=== PATIENT | female | born 1970 | race Two or more races ===

== ENCOUNTER 2017-03-06 20:08 | Inpatient (IN) | payer OTHER ==
[~2017-03-06] VITALS: Ht 160 cm; Wt 72.6 kg
[2017-03-06] MEDS ORDERED: Sodium Chloride 500ML 500 ML IV ONE (20:20)
[2017-03-06] MEDS ORDERED: Morphine Sulfate 4mg/ml Inj IVP ONE (20:30)
[2017-03-06 21:02] LABS: APPEARANCE,URINE CLEAR; KETONES,URINE NEGATIVE (NEGATIVE); LEUKOCYTE ESTERASE ,URINE 1+ (NEGATIVE); NITRITE,URINE NEGATIVE (NEGATIVE); PH,URINE 5 (4.5-8.0); PROTEIN,URINE NEGATIVE (NEGATIVE); UROBILINOGEN,URINE NORMAL MG/DL (0.0-1.0)
[2017-03-06 21:20] LABS: BACTERIA,URINE FEW /HPF; RBC,URINE 0-2 /HPF (0 - 2); SQUAMOUS EPITHELIAL CELL,UR OCCASIONAL /LPF (NONE/OCC)
[2017-03-06 21:38] LABS: BASOPHILS % (AUTO) 1.3 % (0.0-2.0); LYMPHOCYTES % (AUTO) 20.8 % (20.0-45.0); MEAN CORPUSCULAR HEMOGLOBIN 30.1 PG (27.0-31.0); MEAN CORPUSCULAR HGB CONC 31.4 G/DL (32.0-36.0); MEAN CORPUSCULAR VOLUME 96 FL (80-99); MEAN PLATELET VOLUME 8.2 FL (6.5-10.1); MONOCYTES % (AUTO) 6.4 % (1.0-10.0); NEUTROPHILS % (AUTO) 67.5 % (45.0-75.0); PLATELET COUNT 191 K/UL (150-450); RED BLOOD COUNT 4.18 M/UL (4.20-5.40); RED CELL DISTRIBUTION WIDTH 12.2 % (11.6-14.8); WHITE BLOOD COUNT 9.2 K/UL (4.8-10.8)
[2017-03-06 22:15] LABS: ALANINE AMINOTRANSFERASE 20 U/L (12-78); ALBUMIN/GLOBULIN RATIO 1.1 (1.0-2.7); ANION GAP 10 (5-15); ASPARTATE AMINO TRANSFERASE 33 U/L (15-37); CALCIUM 9.8 MG/DL (8.5-10.1); CARBON DIOXIDE 26 MMOL/L (21-32); CHLORIDE 102 MMOL/L (98-107); CKMB 2.8 NG/ML (0.0-3.6); CREATININE 0.8 MG/DL (0.55-1.30); GLOMERULAR FILTRATION RATE > 60 mL/min (>60); POTASSIUM 4.7 MMOL/L (3.5-5.1); SODIUM 138 MMOL/L (136-145); TOTAL PROTEIN 7.5 G/DL (6.4-8.2)
[2017-03-06 22:46] LABS: ACETAMINOPHEN < 10.0 MCG/ML (10-30)
[2017-03-06 22:47] LABS: ALCOHOL < 5 mg/dL
[2017-03-06] MEDS ORDERED: Miralax 17gm pkt ORAL PRN (23:30)
[2017-03-06] MEDS ORDERED: Zolpidem 5mg tab ORAL PRN (23:30)
[2017-03-06] MEDS ORDERED: LORazepam Inj 2mg/ml 1ml IV PRN (23:30)
[2017-03-06] MEDS ORDERED: Mylanta II UD 30ml ORAL PRN (23:30)
--- NOTE | 2017-03-06 23:40 | Emergency Room Report ---
History of Present Illness General Chief Complaint: Altered Level of Consciousness Source: Patient, EMS Present Illness HPI 47-year-old female presents ED for evaluation. Per EMS patient had a witnessed seizure at home. Witnessed by her aunt. Last for several seconds. Stated that patient foamed from the mouth and her eyes rolled to the back of her head while eating dinner. At this time patient states she feels okay but does not remember what happened. Denies history of seizures. Notes mild headache. Throbbing, 5 Out of 10, nonradiating. Denies photophobia, blurry vision. Denies neck stiffness, denies fevers or chills. Denies drug use. No aggravating relieving factors. Denies any other associated symptoms Allergies: Coded Allergies: PENICILLINS (Verified Allergy, Unknown, 03/06/17) Patient History Past Medical History: none Past Surgical History: none Pertinent Family History: none Social History: Denies: smoking, alcohol use, drug use Last Menstrual Period: unk Now: No Immunizations: UTD Reviewed Nursing Documentation: PMH: Agreed, PSxH: Agreed Nursing Documentation-PMH Past Medical History Deferred: Pt Cognitively Impaired Review of Systems All Other Systems: negative except mentioned in HPI Physical Exam Vital Signs Date Time Temp Pulse Resp B/P (MAP) Pulse Ox O2 Delivery O2 Flow Rate FiO2 03/06/17 20:02 98.2 90 18 120/71 97 Room Air Sp02 EP Interpretation: reviewed, normal General Appearance: no apparent distress, alert, GCS 15, non-toxic Head: normocephalic, atraumatic Eyes: bilateral eye normal inspection, bilateral eye PERRL ENT: hearing grossly normal, normal pharynx, no angioedema, normal voice Neck: full range of motion, supple/symm/no masses Respiratory: chest non-tender, lungs clear, normal breath sounds, speaking full sentences Cardiovascular #1: regular rate, rhythm, no edema Cardiovascular #2: 2+ carotid (R), 2+ carotid (L), 2+ radial (R), 2+ radial (L) , 2+ dorsalis pedis (R), 2+ dorsalis pedis (L) Gastrointestinal: normal bowel sounds, non tender, soft, non-distended, no guarding, no rebound Rectal: deferred Genitourinary: normal inspection, no CVA tenderness Musculoskeletal: back normal, gait/station normal, normal range of motion, non- tender Neurologic: alert, oriented x3, responsive, motor strength/tone normal, sensory intact, speech normal Psychiatric: judgement/insight normal, memory normal, mood/affect normal, no suicidal/homicidal ideation Reflexes: 3+ bicep (R), 3+ bicep (L), 3+ tricep (R), 3+ tricep (L), 3+ knee (R) , 3+ knee (L) Skin: normal color, no rash, warm/dry, well hydrated Lymphatic: no adenopathy Medical Decision Making Diagnostic Impression: Primary Impression: New onset seizure ER Course Hospital Course 47-year-old F presents to ED status post seizure. Differential diagnosis includes- breakthrough seizure, alcohol abuse, noncompliance with medication Clinical course Patient placed on stretcher. Initial history and physical I ordered labs, IV fluids, CT brain Labs-electrolytes okay, no leukocytosis noted, hemoglobin/hematocrit stable. CT Brain ok Because seizures new-onset believe patient should be admitted. Given IV loading dose of Keppra. She will be admitted to Dr. Zion colin. I feel this is a highly complex case requiring extensive working including EKG/Rhythm strip, Xray/CT/US, Blood/urine lab work, repeat exams while in ED, and administration of strong opiates/narcotics for pain control, admission to hospital or close patient follow up. Diagnosis - new onset seizure admitted to telemetry in serious condition Labs Test 03/06/17 20:30 03/06/17 21:06 Urine Color Pale yellow Urine Appearance Clear Urine pH 5 (4.5-8.0) Urine Specific [place] 1.020 (1.005-1.035) Urine Protein Negative (NEGATIVE) Urine Glucose (UA) Negative (NEGATIVE) Urine Ketones Negative (NEGATIVE) Urine Occult Blood Negative (NEGATIVE) Urine Nitrite Negative (NEGATIVE) Urine Bilirubin Negative (NEGATIVE) Urine Urobilinogen Normal MG/DL (0.0-1.0) Urine Leukocyte Esterase 1+ (NEGATIVE) Urine RBC 0-2 /HPF (0 - 2) Urine WBC 2-4 /HPF (0 - 2) Urine Squamous Epithelial Cells Occasional /LPF Urine Bacteria Few /HPF (NONE) Urine Opiates Screen Negative (NEGATIVE) Urine Barbiturates Screen Negative (NEGATIVE) Phencyclidine (PCP) Screen Negative (NEGATIVE) Urine Amphetamines Screen Negative (NEGATIVE) Urine Benzodiazepines Screen Negative (NEGATIVE) Urine Cocaine Screen Negative (NEGATIVE) Urine Marijuana (THC) Screen Negative (NEGATIVE) White Blood Count 9.2 K/UL (4.8-10.8) Red Blood Count 4.18 M/UL (4.20-5.40) Hemoglobin 12.6 G/DL (12.0-16.0) Hematocrit 40.0 % (37.0-47.0) Mean Corpuscular Volume 96 FL (80-99) Mean Corpuscular Hemoglobin 30.1 PG (27.0-31.0) Mean Corpuscular Hemoglobin Concent 31.4 G/DL (32.0-36.0) Red Cell Distribution Width 12.2 % (11.6-14.8) Platelet Count 191 K/UL (150-450) Mean Platelet Volume 8.2 FL (6.5-10.1) Neutrophils (%) (Auto) 67.5 % (45.0-75.0) Lymphocytes (%) (Auto) 20.8 % (20.0-45.0) Monocytes (%) (Auto) 6.4 % (1.0-10.0) Eosinophils (%) (Auto) 4.0 % (0.0-3.0) Basophils (%) (Auto) 1.3 % (0.0-2.0) Sodium Level 138 MMOL/L (136-145) Potassium Level 4.7 MMOL/L (3.5-5.1) Chloride Level 102 MMOL/L (98-107) Carbon Dioxide Level 26 MMOL/L (21-32) Anion Gap 10 (5-15) Blood Urea Nitrogen 15 mg/dL (7-18) Creatinine 0.8 MG/DL (0.55-1.30) Estimat Glomerular Filtration Rate > 60 mL/min (>60) Glucose Level 78 MG/DL (74-106) Calcium Level 9.8 MG/DL (8.5-10.1) Total Bilirubin 0.4 MG/DL (0.2-1.0) Aspartate Amino Transf (AST/SGOT) 33 U/L (15-37) Alanine Aminotransferase (ALT/SGPT) 20 U/L (12-78) Alkaline Phosphatase 92 U/L (46-116) Total Creatine Kinase 218 U/L (26-308) Creatine Kinase MB 2.8 NG/ML (0.0-3.6) Creatine Kinase MB Relative Index 1.2 Troponin I 0.000 ng/mL (0.000-0.056) Total Protein 7.5 G/DL (6.4-8.2) Albumin 4.0 G/DL (3.4-5.0) Globulin 3.5 g/dL Albumin/Globulin Ratio 1.1 (1.0-2.7) Salicylates Level 6 ug/mL (2.8-20) Acetaminophen Level < 10.0 MCG/ML (10-30) Serum Alcohol < 5 mg/dL CT/MRI/US Diagnostic Results CT/MRI/US Diagnostic Results : Imaging Test Ordered: CT Head Impression no acute process Last Vital Signs Date Time Temp Pulse Resp B/P (MAP) Pulse Ox O2 Delivery O2 Flow Rate FiO2 03/06/17 20:02 98.2 90 18 120/71 97 Room Air Status: improved Disposition: ADMITTED INPATIENT Condition: Serious Referrals: NON PHYSICIAN (PCP) ALEXANDER CAMARILLO M.D. Mar 06, 2017 23:40
[2017-03-06] MEDS ORDERED: levETIRAcetam 500 MG in D5W 110 ML IV ONE (23:45)
[2017-03-07] VITALS (7 sets, daily range): BP systolic 101–132; BP diastolic 58–79
[2017-03-07] MEDS ORDERED: Ketorolac 30mg Inj IV ONE
[2017-03-07] MEDS ORDERED: Ketorolac 30mg Inj ONE (00:34)
[2017-03-07] MEDS ORDERED: levETIRAcetam 500mg vial IV ONE (00:35)
[2017-03-07] MEDS ORDERED: TRAZODONE HCL50 MG ORAL (00:58)
[2017-03-07] MEDS ORDERED: AMBIEN5 MG ORAL (00:58)
[2017-03-07] MEDS ORDERED: PROPRANOLOL HCL10 MG ORAL (00:58)
[2017-03-07] MEDS ORDERED: TRAZODONE HCL150 MG ORAL (01:54)
[2017-03-07] MEDS: Morphine Sulfate 2mg/ml Inj IVP PRN ×5 (03:29→22:52)
[2017-03-07 08:05] LABS: BASOPHILS % (AUTO) 1.3 % (0.0-2.0); EOSINOPHILS % (AUTO) 4.2 % (0.0-3.0); LYMPHOCYTES % (AUTO) 39.5 % (20.0-45.0); MEAN CORPUSCULAR HEMOGLOBIN 32.4 PG (27.0-31.0); MEAN CORPUSCULAR HGB CONC 34.1 G/DL (32.0-36.0); MEAN CORPUSCULAR VOLUME 95 FL (80-99); MEAN PLATELET VOLUME 9.1 FL (6.5-10.1); MONOCYTES % (AUTO) 8.5 % (1.0-10.0); NEUTROPHILS % (AUTO) 46.5 % (45.0-75.0); PLATELET COUNT 176 K/UL (150-450); RED CELL DISTRIBUTION WIDTH 12.4 % (11.6-14.8); WHITE BLOOD COUNT 6.3 K/UL (4.8-10.8)
[2017-03-07] MEDS: Heparin 5000 units/ml inj SUBQ SCH ×2 (08:15→20:42)
[2017-03-07 08:45] LABS: ALANINE AMINOTRANSFERASE 19 U/L (12-78); ALBUMIN/GLOBULIN RATIO 1.2 (1.0-2.7); ANION GAP 9 (5-15); ASPARTATE AMINO TRANSFERASE 19 U/L (15-37); CALCIUM 8.6 MG/DL (8.5-10.1); CARBON DIOXIDE 26 MMOL/L (21-32); CHLORIDE 106 MMOL/L (98-107); CREATININE 0.8 MG/DL (0.55-1.30); GLOMERULAR FILTRATION RATE > 60 mL/min (>60); POTASSIUM 3.6 MMOL/L (3.5-5.1); SODIUM 141 MMOL/L (136-145); TOTAL PROTEIN 6.3 G/DL (6.4-8.2)
--- NOTE | 2017-03-07 09:46 | Diagnostic Imaging Report ---
Indication: Headache, fall, status post seizure Technique: Continuous helical CT scanning of the head was performed without intravenous contrast material. Axial and coronal 5 mm sections were generated. Radiation dose was minimized using automated exposure control Dose: Total Dose Length Product - DLP [address] Dose Index - CTDIvol(s) 70.38 mGy. Comparison: None Findings: The ventricular system is normal in size and configuration. There is no shift of midline structures. No abnormal extra-axial fluid collections are noted. There is no evidence of intracerebral bleeding. No other abnormal high or low density areas are noted within the brain. Intact calvarium. Visualized orbits and sinuses are unremarkable. There is a small right supraorbital scalp soft tissue contusion. Impression: Evidence of extracranial right frontal scalp soft tissue injury Negative for acute intracranial bleed or mass effect. This agrees with the preliminary interpretation provided overnight by [facility] teleradiology service. The CT scanner at [facility] is accredited by the [employer] and the scans are performed using protocols designed to limit radiation exposure to as low as reasonably achievable to attain images of sufficient resolution adequate for diagnostic evaluation.
--- NOTE | 2017-03-07 12:23 | History and Physical ---
History of Present Illness General Date patient seen: Mar 07, 2017 Reason for Hospitalization: Altered Level of Consciousness Present Illness HPI 47-year-old female presents ED for evaluation of a witnessed seizure at home. Lasted for several seconds. She foamed from the mouth and her eyes rolled to the back of her head while eating dinner. At this time patient states she feels okay but does not remember what happened. Denies history of seizures. Notes mild headache. Denies photophobia, blurry vision. She is admitted to telemetry for evaluation of new onset seizures. Allergies: Coded Allergies: PENICILLINS (Verified Allergy, Unknown, 03/06/17) Medication History Scheduled Propranolol Hcl* (Inderal*), 10 MG ORAL THREE TIMES A DAY, (Reported) Trazodone* (Trazodone*), 150 MG ORAL BEDTIME, (Reported) Scheduled PRN Zolpidem Tartrate* (Ambien*), 12.5 MG ORAL BEDTIME PRN for Insomnia, (Reported) Patient History Healthcare decision maker Resuscitation status Full Code Advanced Directive on File Past Medical/Surgical History Past Medical/Surgical History: (1) No pertinent past medical history Review of Systems Endocrine: Reports: no symptoms Hematologic/Lymphatic: Reports: no symptoms Physical Exam General Appearance: WD/WN, no apparent distress Lines, tubes and drains: peripheral HEENT: normocephalic, atraumatic Neck: non-tender, normal alignment Respiratory/Chest: chest wall non-tender Breasts: no masses Cardiovascular/Chest: normal peripheral pulses Abdomen: normal bowel sounds Genitourinary/Rectal: normal genital exam Last 24 Hour Vital Signs Date Time Temp Pulse Resp B/P (MAP) Pulse Ox O2 Delivery O2 Flow Rate FiO2 03/07/17 08:50 97.5 64 18 112/72 96 Room Air 03/07/17 08:00 64 03/07/17 04:09 97.7 54 20 101/62 94 Room Air 03/07/17 04:00 53 03/07/17 01:25 97.2 57 20 117/78 94 Room Air 03/07/17 01:03 98.2 03/07/17 01:02 98.2 03/07/17 01:02 98.2 03/07/17 00:59 98.2 81 18 132/78 97 Room Air 03/07/17 00:51 98.2 81 18 132/78 97 Room Air 03/06/17 20:02 98.2 90 18 120/71 97 Room Air Intake and Output 03/07/17 03/08/17 19:00 07:00 Intake Total 120 ml Balance 120 ml Intake Oral 120 ml # Voids 1 Laboratory Tests Test 03/06/17 20:30 03/06/17 21:06 03/07/17 07:00 Urine Color Pale yellow Urine Appearance Clear Urine pH 5 (4.5-8.0) Urine Specific [place] 1.020 (1.005-1.035) Urine Protein Negative (NEGATIVE) Urine Glucose (UA) Negative (NEGATIVE) Urine Ketones Negative (NEGATIVE) Urine Occult Blood Negative (NEGATIVE) Urine Nitrite Negative (NEGATIVE) Urine Bilirubin Negative (NEGATIVE) Urine Urobilinogen Normal MG/DL (0.0-1.0) Urine Leukocyte Esterase 1+ (NEGATIVE) H Urine RBC 0-2 /HPF (0 - 2) Urine WBC 2-4 /HPF (0 - 2) Urine Squamous Epithelial Cells Occasional /LPF Urine Bacteria Few /HPF (NONE) Urine Opiates Screen Negative (NEGATIVE) Urine Barbiturates Screen Negative (NEGATIVE) Phencyclidine (PCP) Screen Negative (NEGATIVE) Urine Amphetamines Screen Negative (NEGATIVE) Urine Benzodiazepines Screen Negative (NEGATIVE) Urine Cocaine Screen Negative (NEGATIVE) Urine Marijuana (THC) Screen Negative (NEGATIVE) White Blood Count 9.2 K/UL (4.8-10.8) 6.3 K/UL (4.8-10.8) Red Blood Count 4.18 M/UL (4.20-5.40) L 3.60 M/UL (4.20-5.40) L Hemoglobin 12.6 G/DL (12.0-16.0) 11.7 G/DL (12.0-16.0) L Hematocrit 40.0 % (37.0-47.0) 34.2 % (37.0-47.0) L Mean Corpuscular Volume 96 FL (80-99) 95 FL (80-99) Mean Corpuscular Hemoglobin 30.1 PG (27.0-31.0) 32.4 PG (27.0-31.0) H Mean Corpuscular Hemoglobin Concent 31.4 G/DL (32.0-36.0) L 34.1 G/DL (32.0-36.0) Red Cell Distribution Width 12.2 % (11.6-14.8) 12.4 % (11.6-14.8) Platelet Count 191 K/UL (150-450) 176 K/UL (150-450) Mean Platelet Volume 8.2 FL (6.5-10.1) 9.1 FL (6.5-10.1) Neutrophils (%) (Auto) 67.5 % (45.0-75.0) 46.5 % (45.0-75.0) Lymphocytes (%) (Auto) 20.8 % (20.0-45.0) 39.5 % (20.0-45.0) Monocytes (%) (Auto) 6.4 % (1.0-10.0) 8.5 % (1.0-10.0) Eosinophils (%) (Auto) 4.0 % (0.0-3.0) H 4.2 % (0.0-3.0) H Basophils (%) (Auto) 1.3 % (0.0-2.0) 1.3 % (0.0-2.0) Sodium Level 138 MMOL/L (136-145) 141 MMOL/L (136-145) Potassium Level 4.7 MMOL/L (3.5-5.1) 3.6 MMOL/L (3.5-5.1) Chloride Level 102 MMOL/L (98-107) 106 MMOL/L (98-107) Carbon Dioxide Level 26 MMOL/L (21-32) 26 MMOL/L (21-32) Anion Gap 10 (5-15) 9 (5-15) Blood Urea Nitrogen 15 mg/dL (7-18) 13 mg/dL (7-18) Creatinine 0.8 MG/DL (0.55-1.30) 0.8 MG/DL (0.55-1.30) Estimat Glomerular Filtration Rate > 60 mL/min (>60) > 60 mL/min (>60) Glucose Level 78 MG/DL (74-106) 89 MG/DL (74-106) Calcium Level 9.8 MG/DL (8.5-10.1) 8.6 MG/DL (8.5-10.1) Total Bilirubin 0.4 MG/DL (0.2-1.0) 0.2 MG/DL (0.2-1.0) Aspartate Amino Transf (AST/SGOT) 33 U/L (15-37) 19 U/L (15-37) Alanine Aminotransferase (ALT/SGPT) 20 U/L (12-78) 19 U/L (12-78) Alkaline Phosphatase 92 U/L (46-116) 76 U/L (46-116) Total Creatine Kinase 218 U/L (26-308) Creatine Kinase MB 2.8 NG/ML (0.0-3.6) Creatine Kinase MB Relative Index 1.2 Troponin I 0.000 ng/mL (0.000-0.056) Total Protein 7.5 G/DL (6.4-8.2) 6.3 G/DL (6.4-8.2) L Albumin 4.0 G/DL (3.4-5.0) 3.4 G/DL (3.4-5.0) Globulin 3.5 g/dL 2.9 g/dL Albumin/Globulin Ratio 1.1 (1.0-2.7) 1.2 (1.0-2.7) Salicylates Level 6 ug/mL (2.8-20) Acetaminophen Level < 10.0 MCG/ML (10-30) L Serum Alcohol < 5 mg/dL Height (Feet): 5 Height (Inches): 3.00 Weight (Pounds): 160 Medications Current Medications Medications (Trade) Dose Ordered Sig/Aleksandr Route PRN Reason Start Time Stop Time Status Last Admin Dose Admin Acetaminophen (Tylenol) 650 mg Q4H PRN ORAL Mild Pain/Temp > 100.5 03/07/17 02:13 04/06/17 02:12 Al Hydroxide/Mg Hydroxide (Mylanta II) 30 ml Q6H PRN ORAL dyspepsia 03/06/17 23:30 04/05/17 23:29 Dextrose (Dextrose 50%) STAT PRN IV Hypoglycemia 03/06/17 23:30 04/05/17 23:29 Heparin Sodium (Porcine) (Heparin 5000 units/ml) 5,000 units EVERY 12 HOURS SUBQ 03/07/17 09:00 04/06/17 08:59 03/07/17 08:15 Lorazepam (Ativan 2mg/ml 1ml) 2 mg EVERY HOUR PRN IV seizures 03/06/17 23:30 03/13/17 23:29 Morphine Sulfate (Morphine Sulfate) 1 mg EVERY 4 HOURS PRN IVP For Pain 03/06/17 23:30 03/13/17 23:29 03/07/17 08:13 Ondansetron HCl (Zofran) 4 mg Q6H PRN IVP Nausea & Vomiting 03/06/17 23:30 04/05/17 23:29 Polyethylene Glycol (Miralax) 17 gm HSPRN PRN ORAL Constipation 03/06/17 23:30 04/05/17 23:29 Zolpidem Tartrate (Ambien) 5 mg HSPRN PRN ORAL Insomnia 03/06/17 23:30 03/13/17 23:29 Assessment/Plan Problem List: (1) New onset seizure ICD Codes: R56.9 - Unspecified convulsions SNOMED: [id number] Assessment/Plan Neurology evaluation telemetry for now might go home after neuro evaluation DEE ANNE Mar 07, 2017 12:23
--- NOTE | 2017-03-07 13:32 | Neurology Progress Note ---
Objective Physical Exam Last Vital Signs Date Time Temp Pulse Resp B/P (MAP) Pulse Ox O2 Delivery O2 Flow Rate FiO2 03/07/17 12:53 97.2 65 18 106/58 95 Room Air Laboratory Tests Test 03/06/17 20:30 03/06/17 21:06 03/07/17 07:00 Urine Color Pale yellow Urine Appearance Clear Urine pH 5 (4.5-8.0) Urine Specific [place] 1.020 (1.005-1.035) Urine Protein Negative (NEGATIVE) Urine Glucose (UA) Negative (NEGATIVE) Urine Ketones Negative (NEGATIVE) Urine Occult Blood Negative (NEGATIVE) Urine Nitrite Negative (NEGATIVE) Urine Bilirubin Negative (NEGATIVE) Urine Urobilinogen Normal MG/DL (0.0-1.0) Urine Leukocyte Esterase 1+ (NEGATIVE) H Urine RBC 0-2 /HPF (0 - 2) Urine WBC 2-4 /HPF (0 - 2) Urine Squamous Epithelial Cells Occasional /LPF Urine Bacteria Few /HPF (NONE) Urine Opiates Screen Negative (NEGATIVE) Urine Barbiturates Screen Negative (NEGATIVE) Phencyclidine (PCP) Screen Negative (NEGATIVE) Urine Amphetamines Screen Negative (NEGATIVE) Urine Benzodiazepines Screen Negative (NEGATIVE) Urine Cocaine Screen Negative (NEGATIVE) Urine Marijuana (THC) Screen Negative (NEGATIVE) White Blood Count 9.2 K/UL (4.8-10.8) 6.3 K/UL (4.8-10.8) Red Blood Count 4.18 M/UL (4.20-5.40) L 3.60 M/UL (4.20-5.40) L Hemoglobin 12.6 G/DL (12.0-16.0) 11.7 G/DL (12.0-16.0) L Hematocrit 40.0 % (37.0-47.0) 34.2 % (37.0-47.0) L Mean Corpuscular Volume 96 FL (80-99) 95 FL (80-99) Mean Corpuscular Hemoglobin 30.1 PG (27.0-31.0) 32.4 PG (27.0-31.0) H Mean Corpuscular Hemoglobin Concent 31.4 G/DL (32.0-36.0) L 34.1 G/DL (32.0-36.0) Red Cell Distribution Width 12.2 % (11.6-14.8) 12.4 % (11.6-14.8) Platelet Count 191 K/UL (150-450) 176 K/UL (150-450) Mean Platelet Volume 8.2 FL (6.5-10.1) 9.1 FL (6.5-10.1) Neutrophils (%) (Auto) 67.5 % (45.0-75.0) 46.5 % (45.0-75.0) Lymphocytes (%) (Auto) 20.8 % (20.0-45.0) 39.5 % (20.0-45.0) Monocytes (%) (Auto) 6.4 % (1.0-10.0) 8.5 % (1.0-10.0) Eosinophils (%) (Auto) 4.0 % (0.0-3.0) H 4.2 % (0.0-3.0) H Basophils (%) (Auto) 1.3 % (0.0-2.0) 1.3 % (0.0-2.0) Sodium Level 138 MMOL/L (136-145) 141 MMOL/L (136-145) Potassium Level 4.7 MMOL/L (3.5-5.1) 3.6 MMOL/L (3.5-5.1) Chloride Level 102 MMOL/L (98-107) 106 MMOL/L (98-107) Carbon Dioxide Level 26 MMOL/L (21-32) 26 MMOL/L (21-32) Anion Gap 10 (5-15) 9 (5-15) Blood Urea Nitrogen 15 mg/dL (7-18) 13 mg/dL (7-18) Creatinine 0.8 MG/DL (0.55-1.30) 0.8 MG/DL (0.55-1.30) Estimat Glomerular Filtration Rate > 60 mL/min (>60) > 60 mL/min (>60) Glucose Level 78 MG/DL (74-106) 89 MG/DL (74-106) Calcium Level 9.8 MG/DL (8.5-10.1) 8.6 MG/DL (8.5-10.1) Total Bilirubin 0.4 MG/DL (0.2-1.0) 0.2 MG/DL (0.2-1.0) Aspartate Amino Transf (AST/SGOT) 33 U/L (15-37) 19 U/L (15-37) Alanine Aminotransferase (ALT/SGPT) 20 U/L (12-78) 19 U/L (12-78) Alkaline Phosphatase 92 U/L (46-116) 76 U/L (46-116) Total Creatine Kinase 218 U/L (26-308) Creatine Kinase MB 2.8 NG/ML (0.0-3.6) Creatine Kinase MB Relative Index 1.2 Troponin I 0.000 ng/mL (0.000-0.056) Total Protein 7.5 G/DL (6.4-8.2) 6.3 G/DL (6.4-8.2) L Albumin 4.0 G/DL (3.4-5.0) 3.4 G/DL (3.4-5.0) Globulin 3.5 g/dL 2.9 g/dL Albumin/Globulin Ratio 1.1 (1.0-2.7) 1.2 (1.0-2.7) Salicylates Level 6 ug/mL (2.8-20) Acetaminophen Level < 10.0 MCG/ML (10-30) L Serum Alcohol < 5 mg/dL Impression/Recommendations Problems: (1) Anxiety (2) Insomnia due to anxiety and fear (3) generalised seizure episode Status: unchanged Recommendations # [id number] EVELYN DUPONT Mar 07, 2017 13:32
--- NOTE | 2017-03-07 15:34 | Diagnostic Imaging Report ---
Indication: AMS 47-year-old female inpatient with history of seizures Technique: sagittal T1 fast spin echo, axial T1 and T2 FLAIR PROPELLER, axial T2 FS PROPELLER, T2* GRE, axial diffusion weighted images,, coronal T2 FLAIR PROPELLER, coronal FSPGR ELIAS, post contrast axial T1 FLAIR PROPELLER images. ADC and exponential ADC maps generated Comparison: Reference made to CT scan 03/06/2017 Findings: There is slight image degradation due to motion artifact. No abnormal areas of restricted diffusion to suggest acute infarction. No acute hemorrhage or edema. No mass effect nor midline shift. Nonspecific foci of high T2 signal are seen in the bilateral frontal deep white matter. These are best appreciated on the T2 FLAIR images These do not demonstrate any associated diffusion restriction or contrast enhancement. No abnormal contrast enhancement elsewhere. Normal size ventricles and extra axial CSF spaces. Visualized orbits and sinuses are unremarkable. The vascular flow voids are preserved. Bilateral hippocampi are symmetrical, without focal signal abnormality Impression: Somewhat limited exam, due to motion artifact Nonspecific T2 hyperintense foci in the frontal lobe deep white matter bilaterally. These could represent foci of ischemic change versus foci of demyelination, among other possibilities Negative for acute infarct, intracranial bleed, mass effect, or contrast enhancing lesion.
--- NOTE | 2017-03-07 16:16 | Cardiology Progress Note ---
Assessment/Plan Assessment/Plan [id number] Objective Last 24 Hour Vital Signs Date Time Temp Pulse Resp B/P (MAP) Pulse Ox O2 Delivery O2 Flow Rate FiO2 03/07/17 15:52 97.7 73 18 108/70 95 Room Air 03/07/17 12:53 97.2 65 18 106/58 95 Room Air 03/07/17 12:00 57 03/07/17 08:50 97.5 64 18 112/72 96 Room Air 03/07/17 08:00 64 03/07/17 04:09 97.7 54 20 101/62 94 Room Air 03/07/17 04:00 53 03/07/17 01:25 97.2 57 20 117/78 94 Room Air 03/07/17 01:03 98.2 03/07/17 01:02 98.2 03/07/17 01:02 98.2 03/07/17 00:59 98.2 81 18 132/78 97 Room Air 03/07/17 00:51 98.2 81 18 132/78 97 Room Air 03/06/17 20:02 98.2 90 18 120/71 97 Room Air Intake and Output 03/07/17 03/08/17 19:00 07:00 Intake Total 360 ml Balance 360 ml Intake Oral 360 ml # Voids 2 Laboratory Tests Test 03/06/17 20:30 03/06/17 21:06 03/07/17 07:00 Urine Color Pale yellow Urine Appearance Clear Urine pH 5 (4.5-8.0) Urine Specific [place] 1.020 (1.005-1.035) Urine Protein Negative (NEGATIVE) Urine Glucose (UA) Negative (NEGATIVE) Urine Ketones Negative (NEGATIVE) Urine Occult Blood Negative (NEGATIVE) Urine Nitrite Negative (NEGATIVE) Urine Bilirubin Negative (NEGATIVE) Urine Urobilinogen Normal MG/DL (0.0-1.0) Urine Leukocyte Esterase 1+ (NEGATIVE) H Urine RBC 0-2 /HPF (0 - 2) Urine WBC 2-4 /HPF (0 - 2) Urine Squamous Epithelial Cells Occasional /LPF Urine Bacteria Few /HPF (NONE) Urine Opiates Screen Negative (NEGATIVE) Urine Barbiturates Screen Negative (NEGATIVE) Phencyclidine (PCP) Screen Negative (NEGATIVE) Urine Amphetamines Screen Negative (NEGATIVE) Urine Benzodiazepines Screen Negative (NEGATIVE) Urine Cocaine Screen Negative (NEGATIVE) Urine Marijuana (THC) Screen Negative (NEGATIVE) White Blood Count 9.2 K/UL (4.8-10.8) 6.3 K/UL (4.8-10.8) Red Blood Count 4.18 M/UL (4.20-5.40) L 3.60 M/UL (4.20-5.40) L Hemoglobin 12.6 G/DL (12.0-16.0) 11.7 G/DL (12.0-16.0) L Hematocrit 40.0 % (37.0-47.0) 34.2 % (37.0-47.0) L Mean Corpuscular Volume 96 FL (80-99) 95 FL (80-99) Mean Corpuscular Hemoglobin 30.1 PG (27.0-31.0) 32.4 PG (27.0-31.0) H Mean Corpuscular Hemoglobin Concent 31.4 G/DL (32.0-36.0) L 34.1 G/DL (32.0-36.0) Red Cell Distribution Width 12.2 % (11.6-14.8) 12.4 % (11.6-14.8) Platelet Count 191 K/UL (150-450) 176 K/UL (150-450) Mean Platelet Volume 8.2 FL (6.5-10.1) 9.1 FL (6.5-10.1) Neutrophils (%) (Auto) 67.5 % (45.0-75.0) 46.5 % (45.0-75.0) Lymphocytes (%) (Auto) 20.8 % (20.0-45.0) 39.5 % (20.0-45.0) Monocytes (%) (Auto) 6.4 % (1.0-10.0) 8.5 % (1.0-10.0) Eosinophils (%) (Auto) 4.0 % (0.0-3.0) H 4.2 % (0.0-3.0) H Basophils (%) (Auto) 1.3 % (0.0-2.0) 1.3 % (0.0-2.0) Sodium Level 138 MMOL/L (136-145) 141 MMOL/L (136-145) Potassium Level 4.7 MMOL/L (3.5-5.1) 3.6 MMOL/L (3.5-5.1) Chloride Level 102 MMOL/L (98-107) 106 MMOL/L (98-107) Carbon Dioxide Level 26 MMOL/L (21-32) 26 MMOL/L (21-32) Anion Gap 10 (5-15) 9 (5-15) Blood Urea Nitrogen 15 mg/dL (7-18) 13 mg/dL (7-18) Creatinine 0.8 MG/DL (0.55-1.30) 0.8 MG/DL (0.55-1.30) Estimat Glomerular Filtration Rate > 60 mL/min (>60) > 60 mL/min (>60) Glucose Level 78 MG/DL (74-106) 89 MG/DL (74-106) Calcium Level 9.8 MG/DL (8.5-10.1) 8.6 MG/DL (8.5-10.1) Total Bilirubin 0.4 MG/DL (0.2-1.0) 0.2 MG/DL (0.2-1.0) Aspartate Amino Transf (AST/SGOT) 33 U/L (15-37) 19 U/L (15-37) Alanine Aminotransferase (ALT/SGPT) 20 U/L (12-78) 19 U/L (12-78) Alkaline Phosphatase 92 U/L (46-116) 76 U/L (46-116) Total Creatine Kinase 218 U/L (26-308) Creatine Kinase MB 2.8 NG/ML (0.0-3.6) Creatine Kinase MB Relative Index 1.2 Troponin I 0.000 ng/mL (0.000-0.056) Total Protein 7.5 G/DL (6.4-8.2) 6.3 G/DL (6.4-8.2) L Albumin 4.0 G/DL (3.4-5.0) 3.4 G/DL (3.4-5.0) Globulin 3.5 g/dL 2.9 g/dL Albumin/Globulin Ratio 1.1 (1.0-2.7) 1.2 (1.0-2.7) Salicylates Level 6 ug/mL (2.8-20) Acetaminophen Level < 10.0 MCG/ML (10-30) L Serum Alcohol < 5 mg/dL JARETH SCOTT Mar 07, 2017 16:16
--- NOTE | 2017-03-07 19:45 | Consultation ---
DATE OF CONSULTATION: 03/07/2017 NEUROLOGICAL CONSULTATION CONSULTING PHYSICIAN: Hung Macias M.D. REQUESTING PHYSICIAN: Cherelle Donovan M.D. HISTORY OF PRESENT ILLNESS: This 47-year-old female seen in neurological consultation to evaluate a new onset of generalized seizure activity. According to her aunt, the patient now visiting her aunt. Then, around diner time, she had a sudden onset of loss of consciousness. She was noted foaming from her mouth, eyes rolled back. This occurred while she was having dinner. There was no tongue biting or urinary incontinence. Upon awakening, the patient felt confused, disoriented. She developed a dull headache. Paramedics were at the scene. She was taken to emergency room. Vital signs on admission were stable. She was afebrile. Blood pressure 120/71. Neurological assessment was negative. She had a stat CT of the brain obtained. This revealed evidence of right frontal scalp soft tissue injury. No intracranial abnormalities. Laboratory studies included normal CBC study, unremarkable chemistry panel, negative toxicology panel, and normal urinalysis except 1+ leukocyte esterase. Since admission till present, there were no further paroxysmal events noted. The patient informed me that on the day of admission, she drove herself from [place] to [place] to visit her aunt. The same day, she felt quite tired, but no other associated symptomatology. There was no coughing or sneezing. No headache. No dizziness. No unilateral weakness or numbness. No palpitations or shortness of breath. PAST MEDICAL HISTORY: The patient has no major medical issues, but suffered from anxiety for several years, being treated with Compazine and insomnia. She is being treated with trazodone 150 mg at bedtime, Ambien 12.5 mg at bedtime, and Inderal 10 mg b.i.d. She does not recall any evidence of withdrawal. She was taking medications on time daily. SOCIAL HISTORY: The patient is single, but has an adult son. She worked in social media developer. She lived in [place], but then she moved to [place] 2 weeks ago looking for similar job. She is a smoker, but no alcohol or drug abuse. FAMILY HISTORY: Noncontributory. There is no family history of seizure disorder. REVIEW OF SYSTEMS: At this time, the patient is feeling well. No chest pain or palpitations. No respiratory problems. Denies unilateral weakness, numbness, or tingling. No urine or bowel incontinence. No tongue biting. PHYSICAL EXAMINATION: GENERAL: A well-developed, well-nourished lady, not in acute distress. VITAL SIGNS: Her vital signs now are stable. Blood pressure 106/50, respirations 18, and temperature 97.2 degrees. HEENT: Head, normocephalic. There is no evidence of trauma. Eyes, ears, and throat are clear. NECK: Supple. No meningeal signs. MUSCULOSKELETAL: Unremarkable. There are no deformities. Peripheral pulses 1+ and symmetric. NEUROLOGIC: Mental Status: She is fully alert and oriented x3. Speech is fluent. Language intact. There is no aphasia. No apraxia. Cognitive function normal. She has no recollection of event from yesterday, but added that she always has some problem with the memory. CRANIAL NERVES: Cranial Nerves II: Pupils both responding to light and accommodation. Extraocular movement intact. No nystagmus. CRANIAL NERVES V: Normal corneal responses. CRANIAL NERVES VII: No facial asymmetry. CRANIAL NERVES VIII: Normal hearing. CRANIAL NERVES IX THROUGH XII: Within normal limits. Motor Examination: Normal muscle tone. Strength 5/5 in all extremities. No involuntary movement. Deep tendon reflexes 1+ and symmetric with downgoing toes on both sides. SENSORY EXAM: Normal to pinprick and light touch. GAIT: Stable. IMPRESSION: 1. Single generalized seizure episode, etiology undetermined. 2. Anxiety disorder. 3. Nicotine dependent. 4. Sleep disorder. RECOMMENDATION: To complete workup, we will obtain electroencephalogram and MRI of the brain with and without contrast. The patient to start on Keppra 250 mg b.i.d. Warned her of not driving. DMV to be notified. Thank you for allowing me to see this interesting patient in neurological consultation. Hung Macias M.D. DR: HIPOLITO JOB#: [id number] CC:
[2017-03-08] VITALS: BP 110/60
--- NOTE | 2017-03-08 00:16 | Consultation ---
DATE OF CONSULTATION: 03/07/2017 CARDIOLOGY CONSULTATION CONSULTING PHYSICIAN: Giovani Contreras M.D. REFERRING PHYSICIAN: Cherelle Donovan M.D. REASON FOR REFERRAL: Bradycardia. HISTORY OF PRESENT ILLNESS: This is a 47-year-old female, who is admitted to the hospital because of new onset of seizures. The patient was admitted to the hospital and is on monitoring specialist. It shows that the patient has some bradycardiac rhythm. The patient does not have any prior heart issues except for that she had been told that she has had a heart murmur before. She has been having history of anxiety and for the past year, she has been on some propranolol although she has not taken it for the past few days, but she does not have any chest pain or pressure. There is no PND. No orthopnea. No palpitations. No syncope. No near syncope. No dizziness or lightheadedness on standing. She is usually active playing soccer without having any chest pain or shortness of breath. No dizziness or lightheadedness. PAST MEDICAL HISTORY: Positive for history of a heart murmur. She denies any diabetes, high blood pressure, heart attack, cancer, stroke, hepatitis, tuberculosis, asthma, emphysema, ulcers, kidney problems, liver problems, thyroid problems, anemia, or arthritis. SOCIAL HISTORY: She smokes about one pack a day. Does not use drugs or alcoholic beverages. REVIEW OF SYSTEMS: GASTROINTESTINAL: Negative. GENITOURINARY: Negative. PULMONARY: Negative. CONSTITUTIONAL: Negative. NEUROLOGIC: Some numbness and tingling sensation in the right arm. PHYSICAL EXAMINATION: GENERAL: Shows to be a middle-aged female, in no respiratory distress. NECK: Supple. No jugular venous distention. No abdominojugular reflux noted. LUNGS: Clear to auscultation and percussion. CARDIAC: S1 is normal. S2 is normal. Regular rhythm. Bradycardic. No RV lifts, heaves, thrills, or gallops noted. ABDOMEN: Soft and nontender. Positive bowel sounds. EXTREMITIES: There is no clubbing or cyanosis nor edema. NEUROLOGIC: She is awake, alert, responsive, and in no distress. LABORATORY VALUES: White count 6.3, hemoglobin 11.7, and platelet count of 176,000. Sodium 141, potassium 3.6, chloride 106, bicarbonate 26, BUN 13, creatinine 0.8, and glucose of 89. Troponin 0.00. Liver function tests are normal. Total CK of 218. Urinalysis is unremarkable. She has had CT scan of her head that shows evidence of intracranial right frontal scalp soft tissue injury and negative for acute intracranial bleed or mass effect. MRI of the brain was performed, motion artifact in frontal lobe deep white matter bilaterally, this could represent focal ischemic changes although demyelination is amongst other possibilities. Telemetry data showed sinus rhythm and sinus bradycardia, no significant pauses are being documented. EKG, sinus and sinus bradycardia as well and no ST or T-wave abnormalities of any significant degree. ASSESSMENT AND PLAN: 1. Bradycardia, probably secondary to underlying medications, beta-blockers. 2. New-onset seizures. 3. Intracranial pathology. Dr. Donovan, this patient was seen in cardiac consultation. The patient has no signs or symptoms of syncope or near syncope. The patient is quite active without any discomfort or problems with dizziness or lightheadedness. Bradycardia is most likely secondary to medications and/or increased vagal tone during nighttime. TSH will be ordered as a matter of routine. I do not suspect that she needs to be treated at this time. The patient will be monitored for another day on the telemetry and will be subsequently discontinued on monitor. Giovani Contreras M.D. DR: JT JOB#: [id number] CC:
[2017-03-08] MEDS: Morphine Sulfate 2mg/ml Inj IVP PRN ×3 (03:55→13:29)
[2017-03-08 04:00] VITALS: BP 106/54
[2017-03-08] MEDS: Heparin 5000 units/ml inj SUBQ SCH (08:33)
[2017-03-08 08:34] VITALS: BP 99/66
[2017-03-08 11:43] VITALS: BP 123/72
[2017-03-08] MEDS ORDERED: KEPPRA500 MG ORAL (13:28)
--- NOTE | 2017-03-09 11:22 | Discharge Summary ---
Discharge Summary Hospital Course Date of Admission Mar 06, 2017 at 23:18 Date of Discharge Mar 08, 2017 at 14:30 Admitting Diagnosis NEW ONSET SEIZURE HPI Cherelle Wall is a 47 year old female who was admitted on Mar 06, 2017 at 23:18 for New Onset Seizure Hospital Course [id number] Discharge Discharge Disposition Patient was discharged to Home (01) Discharge Diagnoses: Ela Nelson NP Mar 09, 2017 11:22
--- NOTE | 2017-03-10 03:02 | Discharge Summary 2 SIG ---
DATE OF ADMISSION: 03/06/2017 DATE OF DISCHARGE: 03/08/2017 CONSULTANTS: 1. Giovani Contreras M.D. 2. Hung Macias M.D. BRIEF HOSPITAL COURSE: The patient is a 47-year-old female, who presented to ED for evaluation of witnessed seizure at home. She was noted to have a seizure while eating dinner, described as rolling of the eyes. On arrival to ED, she did not remember what happened. On evaluation, laboratories were stable, there was no leukocytosis, hemoglobin and hematocrit were stable. She had a CT scan of the brain, this showed evidence of intracranial right frontal scalp soft tissue injury, negative for acute intracranial bleed or mass effect. Urinalysis was normal except for +1 leukocyte esterase. She underwent neurologic evaluation and was diagnosed to have a single generalized seizure episode etiology undetermined. She was started on Keppra 250 mg b.i.d. and advised against driving. The patient had some bradycardic rhythm on telemetry. She did not have any prior cardiac issues. She has a history of anxiety and had been on propranolol, although has not taken medication for the past few days. Her initial troponin was negative. Total CK 218. Telemetry data showed sinus rhythm with sinus bradycardia. There was no significant pauses documented. EKG was in sinus and sinus bradycardia as well as negative for ST or T-wave abnormalities of any significant degree. The patient has no signs or symptoms of syncope or near syncope and is active without any dizziness or lightheadedness. Bradycardia is most likely secondary to medication and possible due to increased vagal tone. Urine toxicology was negative. Brain MRI done was negative for acute intracranial bleed, mass effect, or contrast enhancing lesion. The patient was eventually discharged home. FINAL DIAGNOSES: 1. Single generalized seizure episode, etiology undetermined. 2. Anxiety disorder. 3. Nicotine dependence. 4. Bradycardia, probably secondary to underlying medication and beta-blockers. DISCHARGE DISPOSITION: The patient was discharged home. DISCHARGE MEDICATIONS: Refer to medication list. FOLLOWUP: The patient was advised to follow up with PMD in a week. Cherelle Donovan M.D. I have been assigned to dictate discharge summary on this account and I was not involved in the patient's management. Ela Nelson N.P. DR: DAWN JOB#: [id number] CC: JEMAL
--- NOTE | 2017-03-10 16:45 | Electroencephalogram ---
DATE OF PROCEDURE: 03/07/2017 PROCEDURE PERFORMED: Electroencephalogram. READING PHYSICIAN: Hung Macias M.D. REQUESTING PHYSICIAN: Cherelle Donovan M.D. HISTORY: This is a 47-year-old female, who is admitted for appearance of new onset of generalized seizure activity. EEG was requested to assess presence of ongoing seizure event or identify epileptogenic focus. Current treatment includes Keppra. EEG was done using 18 electrodes, placed scalp to scalp and scalp to ear montages according to 10/[employer] System. TECHNIQUE: During the recording, the patient was fairly cooperative, normal mentality, awake, and drowsy. On most wakeful portions of recording, background activity consists of well-regulated 8 to 9 cycles per second alpha activities with good response to physiological stimulation, eye opening, and eye closure. Hyperventilation was obtained. This resulted in slight diffuse slowing. No spike or wave activities. No paroxysmal event noted. Throughout the recording, the patient was in and out of sleep with attenuation of background. No paroxysmal event or clinical signs of seizure activities noted. IMPRESSION: Normal awake stage 1 sleep EEG with hyperventilation. COMMENT: Absence of paroxysmal event on a single recording does not rule out seizure disorder. Hung Macias M.D. DR: MEGHNA JOB#: [id number] CC:
--- NOTE | 2017-03-17 15:40 | Cardiology Report ---
APPROVED REPORT EKG Measurement Heart [id number] Sinus bradycardia Low voltage QRS Borderline ECG
== END 2017-03-08 14:30 | disposition home or self-care (01) | DRG 101 ==
LOC: EDBD 20:08 → EMR 20:25 → 2E 23:18 → EDBEDREQ 03-07 01:03 → 2E 03-07 18:20
DX: R56.9 Unspecified convulsions (principal); R00.1 Bradycardia, unspecified; F41.9 Anxiety disorder, unspecified; F17.290 Nicotine dependence, other tobacco product, uncomplicated; T50.995A Adverse effect of other drugs, medicaments and biological substances, initial encounter; Y92.9 Unspecified place or not applicable; G47.00 Insomnia, unspecified; Y92.89 Other specified places as the place of occurrence of the external cause
CPT/HCPCS: 36415; 70450; 70553; 80053; 80299; 80300; 80329; 81003; 82550; 82553; 84484; 85025; 93005; 95819; 99285; A9585